=== PATIENT | male | born 1955 | race Hispanic/Latino ===

== ENCOUNTER → 2018-12-31 | Outpatient (CLI) | payer OTHER ==
[~2018-12-31] MED LIST: GADODIAMIDE 10 MMOL/20 ML ML IV ONE; MIDAZOLAM HCL 1 MG/ML 2ML VIAL ONE
--- NOTE | 2018-12-31 08:22 | NUR ---
MRI CERVICAL SPINE WITH CONSCIOUS SEDATION PATIENT TOLERATED PROCEDURE WELL. RIGHT WRIST SALINE LOCK REMOVED AND PATIENT RECOVERED IN RADIOLOGY ROOM. DISCHARGE INSTRUCTIONS GIVEN AND VERBALIZED UNDERSTANDING. DISCHARGED AMBULATORY. STABLE, AAO X3 WITH NO C/O DISCOMFORT.
== END | disposition home or self-care (01) ==
LOC: RAH 07:45
PROVIDERS: ATTEND Neurological Surgery
DX: M48.02 Spinal stenosis, cervical region (principal); M51.36 Other intervertebral disc degeneration, lumbar region; M25.78 Osteophyte, vertebrae; M47.22 Other spondylosis with radiculopathy, cervical region
CPT/HCPCS: 72141; J2250; 99152; 99153; A9579

== ENCOUNTER 2019-01-30 07:30 | Observation (INO) | payer OTHER ==
[2019-01-28 10:50] VITALS: BP 119/65
[2019-01-28 11:47] LABS: BASOPHILS % (AUTO) 0.9 % (0.0-5.0); EOSINOPHILS % (AUTO) 3.7 % (0.0-8.0); HEMATOCRIT 45.5 % (42-54); LYMPHOCYTES % (AUTO) 23.9 % (21.0-51.0); MEAN CORPUSCULAR HEMOGLOBIN 30.1 pg (27.0-33.0); MEAN CORPUSCULAR HGB CONC 32.9 g/dL (32.0-36.0); MEAN CORPUSCULAR VOLUME 91.5 fL (79-99); NEUTROPHILS % (AUTO) 64.5 % (40.0-77.0); NUCLEATED RED BLOOD CELLS 0.1 % (0.0-0.19); PLATELET COUNT (AUTO) 203 K/uL (130-400); RED BLOOD CELL COUNT(AUTO) 4.97 MIL/uL (4.50-6.20); WHITE BLOOD COUNT (AUTO) 7.8 K/uL (4.8-10.8)
[2019-01-28 11:57] LABS: CREATININE 0.8 mg/dL (0.5-1.5); POTASSIUM 4.3 mmol/L (3.5-5.1)
[~2019-01-30] VITALS: Ht 168.9 cm; Wt 114.5 kg
[~2019-01-30 07:30] MED LIST changes: +ASPI-1181 PO; +ATOR10 PO; +CARV10CR PO; +DUTA1CPM PO; -GADODIAMIDE 10 MMOL/20 ML ML IV ONE; +METF-444 PO; -MIDAZOLAM HCL 1 MG/ML 2ML VIAL ONE; +MIRA50TA PO; +OMEG1CAP31 PO; +SERT50TA PO
[2019-01-31] VITALS (24 sets, daily range): BP systolic 113–143; BP diastolic 64–79
[2019-01-31] MEDS ORDERED: LIDOCAINE PF 2% 5ML ABBOJECT ONE (06:59)
[2019-01-31] MEDS ORDERED: SUCCINYLCHOLINE 200MG/10ML SYR ONE (06:59)
[2019-01-31] MEDS ORDERED: ONDANSETRON HCL 4 MG/2 ML VIAL ONE (07:00)
[2019-01-31] MEDS ORDERED: MIDAZOLAM HCL 1 MG/ML 2ML VIAL ONE (07:00)
[2019-01-31] MEDS ORDERED: PROPOFOL 10 MG/ML 20ML VIAL IV ONE (07:00)
[2019-01-31] MEDS ORDERED: DEXAMETHASONE SOD PHOSPHATE 10MG/ML 1ML VIAL ONE (07:00)
[2019-01-31] MEDS ORDERED: GLYCOPYRROLATE 1 MG/5 ML SYRINGE ONE (07:00)
[2019-01-31] MEDS ORDERED: NEOSTIGMINE 5MG/5ML SYR IV ONE (07:00)
[2019-01-31] MEDS ORDERED: ROCURONIUM 10MG/1ML SYR 10 MG/ML ML ONE (07:00)
[2019-01-31] MEDS ORDERED: FENTANYL CITRATE PF 50 MCG/1 ML 2ML VIAL ONE (07:01)
[2019-01-31] MEDS: CEFAZOLIN SODIUM 1 GM VIAL IVP SCH ×5 (07:30→20:03)
[2019-01-31] MEDS ORDERED: SODIUM CHLORIDE 0.9% 1000ML 1,000 ML IV ONE (07:34)
[2019-01-31] MEDS ORDERED: THROMBIN-JMI 20000 UNIT KIT TP ONE (07:56)
[2019-01-31] MEDS ORDERED: BACITRACIN 50,000 UNIT VIAL ONE (07:56)
[2019-01-31] MEDS ORDERED: BUPIVACAINE/EPI/PF 0.25% 30ML VIAL IJ ONE (07:56)
[2019-01-31] MEDS ORDERED: MEPERIDINE-PF 25 MG/ML SYG ONE ×2 (09:17→13:14)
[2019-01-31] MEDS ORDERED: MANNITOL 20% 500ML BAG 500 ML IV ONE (09:57)
[2019-01-31] MEDS ORDERED: SODIUM CHLORIDE 0.9% 10 ML VIAL IVP PRN (12:45)
[2019-01-31] MEDS ORDERED: PROMETHAZINE HCL 25 MG/ML 1ML AMPULE IM PRN (12:45)
[2019-01-31] MEDS ORDERED: MORPHINE SULFATE 2 MG/ML 1ML SYG IVP PRN (12:45)
[2019-01-31] MEDS: DEXAMETHASONE SOD PHOSPHATE 4 MG/ML 1ML VIAL IVP SCH ×2 (12:45→17:14)
[2019-01-31] MEDS ORDERED: HYDROCODONE/ACETAMINOPHEN 5/325 MG TAB PO PRN (12:45)
--- NOTE | 2019-01-31 13:50 | NUR ---
FROM PACU PT ARRIVED TO FLOOR FROM PACU, PT IS AWAKE,ALERT AND ORIENTED X3, VOICES NO C/O PAIN, ANTERIOR NECK DRESSING D/I, SOFT CERVICAL COLLAR IN PLACE, C/O NUMBNESS TO BILATERAL HANDS, STATES HAS HAD NUMBNESS FOR FIVE YEARS, LOWER EXTREMITIES WITH NO NUMBNESS OR TINGLING. PLAN OF CARE DISCUSSED, CALL [facility] WITHIN REACH.
--- NOTE | 2019-01-31 14:35 | NUR ---
PT REFUSING TO GET UP AT THIS TIME.
[2019-01-31] MEDS: METFORMIN HCL 500 MG TABLET PO SCH (16:51)
[2019-01-31] MEDS: LACTATED RINGERS 1000ML 1,000 ML IV SCH (16:52)
--- NOTE | 2019-01-31 20:15 | NUR ---
ACTIVITY AMBULATING IN THE HALLWAY STEADY GAIT, NO C/O PAIN, BACK TO ROOM , TOLERATED WELL
[2019-01-31] MEDS: FISH OIL 1000 MG/CAP PO SCH (20:31)
[2019-01-31] MEDS ORDERED: TAMSULOSIN HCL PO SCH (21:00)
[2019-01-31] MEDS ORDERED: ASPIRIN 81 MG EC TAB PO SCH (21:00)
[2019-01-31] MEDS ORDERED: SERTRALINE HCL 50 MG TABLET PO SCH (21:00)
[2019-01-31] MEDS ORDERED: ATORVASTATIN CALCIUM 10 MG TABLET PO SCH (21:00)
[2019-01-31] MEDS ORDERED: CARVEDILOL PHOSPHATE 10 MG PO SCH (21:00)
[2019-01-31] MEDS ORDERED: DUTASTERIDE PO SCH (21:00)
[2019-02-01] MEDS: LACTATED RINGERS 1000ML 1,000 ML IV SCH (00:06)
[2019-02-01] MEDS: DEXAMETHASONE SOD PHOSPHATE 4 MG/ML 1ML VIAL IVP SCH ×2 (00:06→06:12)
[2019-02-01 03:46] VITALS: BP 120/72
--- NOTE | 2019-02-01 06:15 | NUR ---
F/C F/C DISCONTINUED ORDERED, DTV, INSTRUCT PATIENT TO CALL NURSE WHEN URGE TO VOID, PATIENT VERBALIZES UNDERSTANDING VIA TEACH BACK, CALL [facility] AT REACH
--- NOTE | 2019-02-01 06:17 | NUR ---
ACTIVITY AMBULATING IN THE HALLWAY, STEADY GAIT, NO C/O PAIN, TOLERATED WELL
[2019-02-01 08:00] VITALS: BP 116/66
[2019-02-01] MEDS: METFORMIN HCL 500 MG TABLET PO SCH (08:00)
[2019-02-01] MEDS ORDERED: MIRABEGRON 50 MG PO SCH (09:00)
[2019-02-01] MEDS: FISH OIL 1000 MG/CAP PO SCH (11:01)
--- NOTE | 2019-02-01 11:15 | NUR ---
DRESSING CHANGE REMOVED DRESSING, INCISION WITH ANA LUISA, NO REDNESS OR DRAINAGE NOTED TO SITE, CLEANSED AREA WITH BETADINE, APPLIED 4X4 GAUZE AND HYPAFIX TAPE, TOLERATED WELL.
[2019-02-01 11:55] VITALS: BP 143/60
--- NOTE | 2019-02-01 12:35 | NUR ---
PT DISCHARGED HOME USING TEACH BACK TECHNIQUE RE; NEW MEDS, HOME MEDS, S/S TO WATCH FOR AND WHEN TO CALL MD OR 911. AAOX3, DENIES ANY WEAKNESS NOR PAIN OR ANY CONCERNS. DRESSING CHANGED AWARE NO TO TOUCH DRESSING UNLESS SOILED OR DRAINAGE NOTED. SPINAL SURGERY DISCHARGE INSTRUCTIONS GIVEN. IV OUT INTACT, VOIDED, UP WALKING. PT WITH SOFT COLLAR AND DRESSING INTACT. PT AWARE TO TAKE STAPLE REMOVAL KIT TO DRS APPOINTMENT. NO LOSS OF BALANCE NOTED, OR WEAKNESS. FOLLOW UP WITH DR. GUAN ON FEBRUARY 08, 2019 AT 09:40AM. FOLLOW UP WITH YOUR PRIMARY DOCTOR IN 1 WEEK. CALL TO SET UP AN APPOINTMENT. MAKE SURE YOU ARRIVE TO YOUR APPOINTMENT WITH DR. GUAN WITH THE STAPLE REMOVAL KIT. FOR MORE INSTRUCTION REFER TO SPINE SURGERY DISCHARGE INSTRUCTIONS GIVEN TO YOU AT DISCHARGE. DRESSING CHANGED BEFORE DISCHARGE HOME, DO NOT REMOVE DRESSING MAY REINFORCE DRESSING WITH EXTRA TAPE.
== END 2019-02-01 13:03 | disposition home or self-care (01) ==
LOC: EDSTATUS 07:30 → DAHIP 01-31 05:54 → 4BH 01-31 13:33
PROVIDERS: ADMIT Neurological Surgery; ATTEND Neurological Surgery
DX: M48.02 Spinal stenosis, cervical region (principal); M43.10 Spondylolisthesis, site unspecified; M25.78 Osteophyte, vertebrae; F40.240 Claustrophobia; E11.9 Type 2 diabetes mellitus without complications; G56.00 Carpal tunnel syndrome, unspecified upper limb; E78.5 Hyperlipidemia, unspecified; I10 Essential (primary) hypertension; J44.9 Chronic obstructive pulmonary disease, unspecified; Z87.442 Personal history of urinary calculi; Z88.8 Allergy status to other drugs, medicaments and biological substances
CPT/HCPCS: 20931; 22551; 22845; 36415; 72020; 80048; 82948 ×6; 85025; 96374; 96375; 96376; A4218; A4344; A4600; A4649 ×5; C1776; G0378 ×32; J0330; J0690 ×2; J1100 ×4; J2001; J2175 ×2; J2250; J2405; J2704; J2710; J3490 ×3; J7030 ×2; J7120; J3010

== ENCOUNTER → 2019-02-22 | Outpatient (CLI) | payer OTHER | END | disposition home or self-care (01) | LOC: OIH 10:14 | PROVIDERS: ATTEND Neurological Surgery | DX: M47.812 Spondylosis without myelopathy or radiculopathy, cervical region (principal) | CPT/HCPCS: 72040 ==

== ENCOUNTER → 2021-01-21 | Outpatient (CLI) | payer MEDICARE ==
[~2021-01-21] MED LIST changes: -ASPI-1181 PO; +ASPI-1443 PO
== END | disposition home or self-care (01) ==
LOC: RAH 10:36
PROVIDERS: ATTEND Neurological Surgery
DX: M47.22 Other spondylosis with radiculopathy, cervical region (principal); M48.02 Spinal stenosis, cervical region; M40.40 Postural lordosis, site unspecified; M43.22 Fusion of spine, cervical region; R25.2 Cramp and spasm
CPT/HCPCS: 36415; 72040; 82565; 84520

== ENCOUNTER → 2021-02-17 | Outpatient (CLI) | payer MEDICARE ==
[~2021-02-17] MED LIST changes: +GADOTERATE MEGLUMINE 10 MMOL/20 ML VIAL IV ONE
== END | disposition home or self-care (01) ==
LOC: RAH 12:15
PROVIDERS: ATTEND Neurological Surgery
DX: M47.22 Other spondylosis with radiculopathy, cervical region (principal); M43.22 Fusion of spine, cervical region; M48.02 Spinal stenosis, cervical region; M25.78 Osteophyte, vertebrae; M48.8X2 Other specified spondylopathies, cervical region; G12.8 Other spinal muscular atrophies and related syndromes
CPT/HCPCS: 72156; A9575